=== PATIENT | male | born 1970 | race Two or more races ===

== ENCOUNTER 2025-03-31 15:26 | Emergency (ER) | payer SELFPAY ==
[~2025-03-31] VITALS: Ht 170.2 cm; Wt 87.5 kg
[2025-03-31 15:30] VITALS: TEMP 97.4
--- NOTE | 2025-03-31 16:46 | Physician Documentation ---
History of Present Illness ~ Chief Complaint: Laceration Stated Complaint: FACE LAC Time Seen by MD: 15:53 Primary Medical Doctor: Dr Adriana MEJÍA" HPI 55-year-old male presents to the ED after injuring his right brow today while putting and T post. The post struck him in the right brow now has a laceration bleeding is controlled. The only medications he takes his for diabetes he denies any blood thinners. Denies any loss of consciousness. Medication Reconciliation Allergies: Coded Allergies: No Known Allergies (Unverified , 03/31/25) Past Medical History Past Medical History: High Cholesterol, Asthma, GERD, Diabetes, Depression Review of Systems All Other Systems at this time: Reviewed and Negative ROS As stated above in the HPI, otherwise all systems are reviewed and negative. Physical Exam Vital Signs: Temperature: 97.4, Source: Temporal, Heart Rate: 80, Respiratory Rate: 16, BP: 120/90, Pulse Oximetry: 98, Weight: 87.500 Oxygen Flow Rate: 0 Physical Exam General: Alert, no apparent distress. HEENT: PERRL, EOMI, no injection, moist mucous membranes. 3 .5 cm laceration in the right brow bleeding is controlled Respiratory: Lungs clear, no respiratory distress. Chest: No accessory muscle use. Neurologic: Oriented x4. Psychiatric: Normal mood and affect. Skin: Normal color, warm and dry. No edema, no ecchymosis. Procedures Laceration/Wound Repair Laceration : Anesthesia: Lidocaine w/ Epi Repaired: skin Suture Size/Type: 5-0 Number of Superficial Sutures: 10 Dressing Applied: simple Tolerated Procedure Well?: yes, no complications Progress Results/Orders Results/Orders Orders - TAN GARNER NP Laceration/I&D Tray Set Up (03/31/25 ) Completed Orders - TAN GARNER NP Lidocaine 1% W/Epi 1:100,000 (Xylocaine (03/31/25 16:40) Tetanus/Pertuss/Diph Acell/Pf (Boostrix (03/31/25 17:10) Vital Signs 03/31/25 15:30 Temp 97.4 Pulse 80 Resp 16 B/P (MAP) 120/90 Pulse Ox 98 O2 Flow Rate 0 Medical Decision Making Findings This 55-year-old male required a laceration repair in his right brow. margins were revised without any difficulty using five 0. Sutures. I did provide a tetanus booster and a Toradol shot for his headache. Do not suspect any concerns of a intracranial abnormality based on his presentation. Not lose consciousness and reported mild headache denied light sensitivity or nausea vomiting Differential Dx:Considerations: Include: Abrasion, Avulsion, Contusion, Laceration, Fracture, Hematoma, Neurovascular injury, Retained foreign body, Other Departure Disposition: HOME / SELF CARE / HOMELESS Impression: Primary Impression: Laceration Discharge Instructions: Laceration Care, Adult, [id number] Additional Instructions: Make sure to have sutures removed in 5-7 days . keep the area clean and dry Referrals: NO PRIMARY CARE PROVIDER (PCP) Signature Scribe Signature: h Attestation: Scribed for Tan Garner Advertising Specialist by Tan Carrion NP . 03/31/25 17:32 TAN GARNER NP Mar 31, 2025 16:46
[2025-03-31] MEDS: LIDOcaine 1% W/epiNEPHrine 1:100,000 20ml vial SQ ONE (16:58)
[2025-03-31] MEDS: TETanus/Pertussis (Acell)/Diphther VAC/PF (Tdap-Adult) 0.5ml syringe IMVAC ONE (17:42)
[2025-03-31] MEDS: ketorolac trometh 30MG/ML vial 30 MG/ML VIAL IM ONE (17:43)
[2025-03-31 17:53] VITALS: BP 120/90; PULSE 80; RESP 16; O2SAT 98
== END 2025-03-31 18:03 | disposition home or self-care (01) ==
LOC: ER 15:27
DX: S01.81XA Laceration without foreign body of other part of head, initial encounter (principal); J45.909 Unspecified asthma, uncomplicated; E78.00 Pure hypercholesterolemia, unspecified; E11.9 Type 2 diabetes mellitus without complications; K21.9 Gastro-esophageal reflux disease without esophagitis; F32.A Depression, unspecified; W22.8XXA Striking against or struck by other objects, initial encounter; Y93.89 Activity, other specified; Y92.89 Other specified places as the place of occurrence of the external cause; Y99.8 Other external cause status
CPT/HCPCS: 12013; 90471; 90715; 96372; 99284; J1885